=== PATIENT | female | born 1935 | race Caucasian/White ===

== ENCOUNTER 2017-11-09 03:08 | Inpatient (IN) | payer OTHER ==
[~2017-11-09] VITALS: Ht 160 cm; Wt 60.8 kg
[~2017-11-09 03:08] MED LIST: COLACE100 MG PO; HEP5I SC; LIPITOR80 MG PO; LISINOPRIL10 MG PO; NOR10T PO; NPHOS PO
[2017-11-09 03:24] VITALS: Ht 160 cm; Wt 60.8 kg
[2017-11-09 04:34] LABS: BASOPHIL % 0.3 % (0-2); PLATELET COUNT 309 x10^3mcL (130-400); RED CELL DISTRIBUTION WIDTH 13.6 % (11.5-14.5)
[2017-11-09 04:54] LABS: ALBUMIN 3.5 g/dL (3.4-5.0); ALKALINE PHOSPHATASE 75 U/L (46-116); ALT/SGPT 20 U/L (14-59); AMYLASE 85 U/L (25-115); AST/SGOT 16 U/L (15-37); BILIRUBIN TOTAL 0.49 mg/dL (0.20-1.00); CALCIUM 9.3 mg/dL (8.5-10.1); CHLORIDE SERUM 97 mmol/L (98-107); CREATININE SERUM 0.9 mg/dL (0.6-1.0); GLUCOSE SERUM 163 mg/dL (74-106); LIPASE 154 IU/L (73-393); SODIUM SERUM 138 mmol/L (136-145); TOTAL PROTEIN, SERUM 7.2 g/dL (6.4-8.2)
[2017-11-09 05:08] LABS: POTASSIUM SERUM 2.7 mmol/L (3.5-5.1)
[2017-11-09] MEDS ORDERED: ELIQUIS2.5 MG PO (06:01)
[2017-11-09 07:48] LABS: MAGNESIUM 1.6 mg/dL (1.8-2.4); PHOSPHOROUS 2.9 mg/dL (2.5-4.9)
[2017-11-09 07:53] LABS: CHOLESTEROL/HDL RATIO 3.9
[2017-11-09 08:09] LABS: FREE T4 1.22 ng/dL (0.76-1.46); FREE THYROXINE INDEX 4.1 ug/dL (1.4-4.5); T4(THYROXINE) 11.4 ug/dL (4.7-13.3)
[2017-11-09 09:52] VITALS: BP 119/79
[2017-11-09 12:45] VITALS: BP 152/82
[2017-11-09 15:08] LABS: microscopic required? YES; urine erythrocyte TRACE (NEGATIVE)
[2017-11-09 16:56] VITALS: BP 158/84
[2017-11-09 20:39] VITALS: BP 120/63
[2017-11-09 23:07] LABS: T3 TOTAL 1.19 ng/mL
[2017-11-10 04:50] VITALS: BP 112/57
[2017-11-10 06:31] LABS: CALCIUM 8.3 mg/dL (8.5-10.1); CARBON DIOXIDE 31.3 mmol/L (21-32); CHLORIDE SERUM 101 mmol/L (98-107); CREATININE SERUM 0.9 mg/dL (0.6-1.0); GLUCOSE SERUM 89 mg/dL (74-106); POTASSIUM SERUM 3.2 mmol/L (3.5-5.1); SODIUM SERUM 138 mmol/L (136-145)
[2017-11-10 06:39] LABS: BASOPHIL % 0.4 % (0-2); PLATELET COUNT 293 x10^3mcL (130-400); RED CELL DISTRIBUTION WIDTH 13.6 % (11.5-14.5)
[2017-11-10 09:13] VITALS: BP 100/61
[2017-11-10 09:39] LABS: MAGNESIUM 1.7 mg/dL (1.8-2.4); PHOSPHOROUS 2.3 mg/dL (2.5-4.9)
[2017-11-10 13:14] VITALS: BP 132/72
[2017-11-10 17:32] VITALS: BP 140/75
[2017-11-10 19:20] VITALS: BP 143/79
[2017-11-10 21:32] VITALS: BP 124/66
[2017-11-11 05:51] VITALS: BP 137/73
[2017-11-11 06:17] LABS: BASOPHIL % 0.2 % (0-2); PLATELET COUNT 286 x10^3mcL (130-400); RED CELL DISTRIBUTION WIDTH 13.8 % (11.5-14.5)
[2017-11-11 06:24] LABS: CALCIUM 8.6 mg/dL (8.5-10.1); CARBON DIOXIDE 32.1 mmol/L (21-32); CHLORIDE SERUM 107 mmol/L (98-107); GLUCOSE SERUM 99 mg/dL (74-106); MAGNESIUM 1.7 mg/dL (1.8-2.4); PHOSPHOROUS 2.6 mg/dL (2.5-4.9); POTASSIUM SERUM 3.4 mmol/L (3.5-5.1); SODIUM SERUM 143 mmol/L (136-145)
[2017-11-11 06:29] LABS: CREATININE SERUM 0.9 mg/dL (0.6-1.0)
[2017-11-11 09:32] VITALS: BP 138/87
[2017-11-11 12:21] VITALS: BP 149/81
[2017-11-11 16:32] VITALS: BP 146/82
[2017-11-11 21:42] VITALS: BP 149/79
[2017-11-12] VITALS (7 sets, daily range): BP systolic 135–165; BP diastolic 74–92
[2017-11-12 08:59] LABS: BASOPHIL % 0.5 % (0-2); PLATELET COUNT 274 x10^3mcL (130-400); RED CELL DISTRIBUTION WIDTH 13.8 % (11.5-14.5)
[2017-11-12 09:33] LABS: CALCIUM 8.3 mg/dL (8.5-10.1); CARBON DIOXIDE 29.6 mmol/L (21-32); CHLORIDE SERUM 106 mmol/L (98-107); CREATININE SERUM 0.8 mg/dL (0.6-1.0); GLUCOSE SERUM 133 mg/dL (74-106); MAGNESIUM 1.7 mg/dL (1.8-2.4); PHOSPHOROUS 2.2 mg/dL (2.5-4.9); POTASSIUM SERUM 3.5 mmol/L (3.5-5.1); SODIUM SERUM 141 mmol/L (136-145)
[2017-11-13 05:44] VITALS: BP 132/79
[2017-11-13 06:10] LABS: BASOPHIL % 0.2 % (0-2); PLATELET COUNT 309 x10^3mcL (130-400); RED CELL DISTRIBUTION WIDTH 13.3 % (11.5-14.5)
[2017-11-13 06:19] LABS: CALCIUM 8.5 mg/dL (8.5-10.1); CARBON DIOXIDE 29.4 mmol/L (21-32); CHLORIDE SERUM 105 mmol/L (98-107); CREATININE SERUM 0.7 mg/dL (0.6-1.0); GLUCOSE SERUM 103 mg/dL (74-106); MAGNESIUM 1.6 mg/dL (1.8-2.4); PHOSPHOROUS 2.8 mg/dL (2.5-4.9); SODIUM SERUM 140 mmol/L (136-145)
[2017-11-13 13:17] VITALS: BP 115/64
[2017-11-13 16:40] VITALS: BP 114/71
[2017-11-13 20:34] VITALS: BP 134/81
[2017-11-14 05:24] VITALS: BP 118/78
[2017-11-14 06:49] LABS: BASOPHIL % 0.2 % (0-2); PLATELET COUNT 302 x10^3mcL (130-400); RED CELL DISTRIBUTION WIDTH 13.5 % (11.5-14.5)
[2017-11-14 06:54] LABS: ALKALINE PHOSPHATASE 62 U/L (46-116); ALT/SGPT 15 U/L (14-59); AST/SGOT 27 U/L (15-37); BILIRUBIN TOTAL 0.39 mg/dL (0.20-1.00); CALCIUM 8.4 mg/dL (8.5-10.1); CARBON DIOXIDE 28.9 mmol/L (21-32); CHLORIDE SERUM 106 mmol/L (98-107); CREATININE SERUM 0.7 mg/dL (0.6-1.0); GLUCOSE SERUM 95 mg/dL (74-106); POTASSIUM SERUM 4.2 mmol/L (3.5-5.1); SODIUM SERUM 141 mmol/L (136-145)
[2017-11-14 07:22] LABS: ALBUMIN 2.5 g/dL (3.4-5.0); TOTAL PROTEIN, SERUM 5.4 g/dL (6.4-8.2)
[2017-11-14 09:47] VITALS: BP 123/69
[2017-11-14 10:54] LABS: MAGNESIUM 1.9 mg/dL (1.8-2.4); PHOSPHOROUS 3.2 mg/dL (2.5-4.9)
[2017-11-14] MEDS ORDERED: FLA500 PO (11:59)
[2017-11-14] MEDS ORDERED: LEVAQUIN750 MG PO (11:59)
[2017-11-14] MEDS ORDERED: NOR10 PO (12:00)
[2017-11-14] MEDS ORDERED: NORCO1 TA2 PO (12:00)
[2017-11-14] MEDS ORDERED: ZES10 PO (12:00)
[2017-11-14] MEDS ORDERED: BD LACTINEX1.4 MG PO (12:00)
[2017-11-14 15:39] VITALS: BP 123/69
== END 2017-11-14 16:47 | disposition home or self-care (01) | DRG 417 ==
LOC: ED 03:08 → MU 06:08 → DU 06:08 → MU 11-13 11:28
PROVIDERS: Emergency Medicine; Family Medicine; Family Medicine Sports Medicine; Surgery
PROC: 0FT44ZZ Resection of Gallbladder, Percutaneous Endoscopic Approach (ICD-10-PCS; principal; 2017-11-09)
DX: K80.00 Calculus of gallbladder with acute cholecystitis without obstruction (principal); E43 Unspecified severe protein-calorie malnutrition; I42.9 Cardiomyopathy, unspecified; K52.9 Noninfective gastroenteritis and colitis, unspecified; E87.6 Hypokalemia; E11.65 Type 2 diabetes mellitus with hyperglycemia; I10 Essential (primary) hypertension; E83.42 Hypomagnesemia; E78.5 Hyperlipidemia, unspecified; S09.90XA Unspecified injury of head, initial encounter; E83.39 Other disorders of phosphorus metabolism; H40.9 Unspecified glaucoma; Z96.641 Presence of right artificial hip joint; Z79.899 Other long term (current) drug therapy; W19.XXXA Unspecified fall, initial encounter; Y93.89 Activity, other specified; Y92.89 Other specified places as the place of occurrence of the external cause; K76.0 Fatty (change of) liver, not elsewhere classified
CPT/HCPCS: 83880; 84439; 87046; 87046-59; 94150; 97535-GP; J0330; J1170; J1885; J1956; J2250; J2270; J2405; J2550; J2704; J3010; J3475; J3480; J3490; J7030; J7120; Q0092; Q9967